=== PATIENT | male | born 1980 | race American Indian/Alaskan Native ===

== ENCOUNTER 2016-11-25 20:43 | Emergency (ER) | payer SELFPAY ==
[2016-11-25 21:04] VITALS: BP 132/77
[2016-11-26] MEDS ORDERED: XYLOCAINE TOPICAL 4% TP ONE (00:34)
[2016-11-26] MEDS ORDERED: VIBRAMYCIN PO ONE (00:34)
[2016-11-26] MEDS ORDERED: ROXICODONE PO ONE (00:34)
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
== END 2016-11-26 00:52 | disposition home or self-care (01) ==
LOC: ED 20:43
DX: S60.521A Blister (nonthermal) of right hand, initial encounter (principal); F17.200 Nicotine dependence, unspecified, uncomplicated; F12.10 Cannabis abuse, uncomplicated; Z88.0 Allergy status to penicillin; X12.XXXA Contact with other hot fluids, initial encounter; Y93.89 Activity, other specified; Y99.8 Other external cause status; Y92.89 Other specified places as the place of occurrence of the external cause
CPT/HCPCS: 99282

== ENCOUNTER 2017-06-27 02:24 | Emergency (ER) | payer SELFPAY | END 2017-06-27 08:10 | disposition left against medical advice (07) | LOC: ED 02:24 | DX: R07.9 Chest pain, unspecified (principal); M54.9 Dorsalgia, unspecified; Z53.21 Procedure and treatment not carried out due to patient leaving prior to being seen by health care provider ==